=== PATIENT | female | born 1945 | race Caucasian/White ===

== ENCOUNTER 2016-10-08 14:32 | Emergency (ER) | payer SELFPAY ==
[~2016-10-08] VITALS: Ht 157.5 cm; Wt 63.5 kg
[2016-10-08 14:35] VITALS: BP 182/90; PULSE 89; RESP 16; TEMP 98.2; O2SAT 96
[2016-10-08 15:10] VITALS: BP 160/70; PULSE 80; RESP 17; O2SAT 97
[2016-10-08] MEDS ORDERED: ALEN1TAB48 PO (15:18)
[2016-10-08] MEDS ORDERED: CLON0.1T PO (15:18)
[2016-10-08] MEDS ORDERED: BENA20TA PO (15:18)
[2016-10-08] MEDS ORDERED: AMLO10TA2 PO (15:18)
[2016-10-08] MEDS ORDERED: PRED5TAB PO (15:18)
[2016-10-08] MEDS ORDERED: LANTUS2P SQ (15:18)
[2016-10-08] MEDS ORDERED: SIMV20TA PO (15:18)
[2016-10-08] MEDS ORDERED: METF1000 PO (15:18)
[2016-10-08] MEDS ORDERED: FLUT50SP EACH NARE (15:18)
[2016-10-08] MEDS ORDERED: FENO145T2 PO (15:18)
[2016-10-08 15:45] VITALS: O2SAT 100
[2016-10-08 15:59] LABS: AUTOMATED NEUTROPHIL # 8.8 TH/MM3 (1.8-7.7); BASOPHIL # 0.1 TH/MM3 (0-0.2); BASOPHIL % 0.9 % (0.0-2.0); EOSINOPHIL # 0.2 TH/MM3 (0-0.4); EOSINOPHIL % 1.8 % (0.0-4.0); HEMATOCRIT 41.8 % (35.0-46.0); HEMO FLAGS DIFF FINAL; LYMPH % 21.2 % (9.0-44.0); LYMPHOCYTE # 2.6 TH/MM3 (1.0-4.8); MEAN CELL VOLUME 84.4 FL (80.0-100.0); MEAN CORPUSCULAR HEMOGLOBIN 29.1 PG (27.0-34.0); MEAN CORPUSCULAR HGB CONC 34.5 % (32.0-36.0); MONO % 4.5 % (0.0-8.0); NEUT % 71.6 % (16.0-70.0); PLATELET COUNT 262 TH/MM3 (150-450); RED BLOOD COUNT 4.95 MIL/MM3 (4.00-5.30); RED CELL DISTRIBUTION WIDTH 13.2 % (11.6-17.2); WHITE BLOOD COUNT 12.2 TH/MM3 (4.0-11.0)
[2016-10-08 16:00] VITALS: BP 151/97; PULSE 78; RESP 19; O2SAT 97
[2016-10-08 16:14] LABS: APTT (PATIENT) 22.3 SEC (24.3-30.1); PROTHROMBIN TIME - PATIENT 10.7 SEC (9.8-11.6)
--- NOTE | 2016-10-08 16:20 | RADRPT ---
EXAM DATE/TIME: 10/08/2016 16:01 [facility] COMPARISON: Report only CT BRAIN W/O CONTRAST, November 30, 2010, 6:33. INDICATIONS : Headache and elevated blood pressure. RADIATION DOSE: 30.40 CTDIvol (mGy) MEDICAL HISTORY : Cardiovascular disease. Diabetes mellitus type 2. Hypertension. SURGICAL HISTORY : None. ENCOUNTER: Initial ACUITY: 1 day PAIN SCALE: 5/10 LOCATION: cranial TECHNIQUE: Multiple contiguous axial images were obtained of the head. Using automated exposure control and adj ustment of the mA and/or kV according to patient size, radiation dose was kept as low as reasonably a chievable to obtain optimal diagnostic quality images. FINDINGS: CEREBRUM: The ventricles are normal for age. No evidence of midline shift, mass lesion, hemorrhage or acute in farction. No extra-axial fluid collections are seen. Scattered encephalomalacia seen in the right pa rietal and occipital lobes, does not appear acute but was not described on the 2011 prior report. POSTERIOR FOSSA: The cerebellum and brainstem are intact. The 4th ventricle is midline. The cerebellopontine angle i s unremarkable. EXTRACRANIAL: The visualized portion of the orbits is intact. SKULL: The calvaria is intact. No evidence of skull fracture. CONCLUSION: 1. 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 2. No bleed, acute infarct or other acute intracranial abnormality demonstrated. Rubén Mccarty MD on October 08, 2016 at 16:16 Board Certified Radiologist. This report was verified electronically.
[2016-10-08 16:25] LABS: BICARBONATE 25.7 MEQ/L (21.0-32.0); MAGNESIUM 1.8 MG/DL (1.5-2.5); POTASSIUM 3.4 MEQ/L (3.5-5.1)
[2016-10-08 17:00] VITALS: BP 166/90; PULSE 77; RESP 18; O2SAT 97
--- NOTE | 2016-10-08 17:27 | PD ---
HPI Chief Complaint: Headache Time Seen by Provider: 15:39 Travel History International Travel<30 days: No Contact w/Intl Traveler<30days: No Traveled to known affect area: No History of Present Illness HPI 71-year-old female presents with frontal headache that is been present over the past couple of days. She went to her primary care physician who adjusted her blood pressure medications and told her to come to the emergency department if her systolic blood pressure was over 160. Given it was elevated and she was still having headache she presents today. She has been taking Tylenol for the pain. She denies thunderclap onset. She denies any recent trauma but states 2 months ago she fell and hit her head. She states she has never had any imaging for that. Quality is throbbing. Severity is moderate. She denies other concurrent complaints. PFSH Past Medical History Arthritis: No Asthma: No Autoimmune Disease: No Anxiety: No Depression: No Heart Rhythm Problems: No Cancer: No Cardiovascular Problems: Yes High Cholesterol: No Chemotherapy: No Congestive Heart Failure: No COPD: No Cerebrovascular Accident: No Diabetes: Yes Patient Takes Glucophage: Yes Diminished Hearing: No Endocrine: No Gastrointestinal Disorders: Yes GERD: No Genitourinary: No Headaches: Yes Hiatal Hernia: No Immune Disorder: No Kidney Stones: No Musculoskeletal: No Neurologic: Yes Psychiatric: No Reproductive: No Respiratory: No Migraines: Yes Radiation Therapy: No Renal Failure: No Seizures: No Sickle Cell Disease: No Sleep Apnea: No Thyroid Disease: No Ulcer: No Tetanus Vaccination: < 5 Years Influenza Vaccination: No Past Surgical History Abdominal Surgery: No (GALLBLADDER SURGERY) AICD: No Arteriovenous Shunt: No Cardiac Surgery: No Cholecystectomy: Yes Ear Surgery: No Endocrine Surgery: No Eye Surgery: No Genitourinary Surgery: No Gynecologic Surgery: No Insulin Pump: No Joint Replacement: No Oral Surgery: No Pacemaker: No Thoracic Surgery: No Other Surgery: Yes Social History Alcohol Use: No Tobacco Use: No Substance Use: No Allergies-Medications (Allergen,Severity, Reaction): Coded Allergies: Penicillin (Verified Allergy, Severe, 10/08/16) Sulfa (Verified Allergy, Severe, 10/08/16) Reported Meds & Prescriptions Reported Meds & Active Scripts Active Reported Simvastatin 20 Mg Tab 20 Mg PO HS Prednisone 5 Mg Tab 5 Mg PO DAILY Fluticasone Nasal [place] 50 Mcg/Act Naspr 50 Mcg EACH NARE BID 50 mcg/spray Benazepril (Benazepril HCl) 20 Mg Tab 20 Mg PO DAILY Alendronate (Alendronate Sodium) 70 Mg Tab 70 Mg PO Q7D Metformin (Metformin HCl) 1,000 Mg Tab 1,000 Mg PO BIDPC With meals Fenofibrate 145 Mg Tab 145 Mg PO DAILY Lantus Inj (Insulin Glargine) 1,000 Unit/10 Ml Vial 25 Units SQ HS Clonidine (Clonidine HCl) 0.1 Mg Tab 0.1 Mg PO Q8HR PRN Amlodipine (Amlodipine Besylate) 10 Mg Tab 10 Mg PO DAILY Review of Systems Except as stated in HPI: all other systems reviewed are Neg Physical Exam Narrative GENERAL: Well-nourished, well-developed patient. SKIN: Warm and dry. HEAD: Normocephalic and atraumatic. EYES: No injection or drainage. ENT: No nasal drainage noted. NECK: Supple, trachea midline. No meningeal signs, tender to bilateral trapezius CARDIOVASCULAR: Regular rate and rhythm RESPIRATORY: No increased effort. No accessory muscle use. EXTREMITIES: No edema. NEUROLOGICAL: Awake and alert. Motor and sensory grossly within normal limits. Normal speech. Data Data Last Documented VS Vital Signs Date Time Temp Pulse Resp B/P Pulse Ox O2 Delivery O2 Flow Rate FiO2 10/08/16 17:00 77 18 166/90 97 Room Air 10/08/16 14:35 98.2 Orders Magnesium (Mg) (10/08/16 15:21) Phosphorus (Po4) (10/08/16 15:21) Complete Blood Count With Diff (10/08/16 15:21) Basic Metabolic Panel (Bmp) (10/08/16 15:21) Act Partial Throm Time (Ptt) (10/08/16 15:21) Prothrombin Time / Inr (Pt) (10/08/16 15:21) Ct Brain W/O Iv Contrast(Rout) (10/08/16 ) Iv Access Insert/Monitor (10/08/16 15:21) Ecg Monitoring (10/08/16 15:21) Oximetry (10/08/16 15:21) Ketorolac Inj (Toradol Inj) (10/08/16 17:30) Oxycodone-Acetamin 5-325 Mg (Percocet (10/08/16 17:45) Ondansetron Odt (Zofran Odt) (10/08/16 18:30) Labs Laboratory Tests Test 10/08/16 15:50 White Blood Count 12.2 TH/MM3 Red Blood Count 4.95 MIL/MM3 Hemoglobin 14.4 GM/DL Hematocrit 41.8 % Mean Corpuscular Volume 84.4 FL Mean Corpuscular Hemoglobin 29.1 PG Mean Corpuscular Hemoglobin 34.5 % Concent Red Cell Distribution Width 13.2 % Platelet Count 262 TH/MM3 Mean Platelet Volume 10.5 FL Neutrophils (%) (Auto) 71.6 % Lymphocytes (%) (Auto) 21.2 % Monocytes (%) (Auto) 4.5 % Eosinophils (%) (Auto) 1.8 % Basophils (%) (Auto) 0.9 % Neutrophils # (Auto) 8.8 TH/MM3 Lymphocytes # (Auto) 2.6 TH/MM3 Monocytes # (Auto) 0.6 TH/MM3 Eosinophils # (Auto) 0.2 TH/MM3 Basophils # (Auto) 0.1 TH/MM3 CBC Comment DIFF FINAL Differential Comment Prothrombin Time 10.7 SEC Prothromb Time International 1.0 RATIO Ratio Activated Partial 22.3 SEC Thromboplast Time Sodium Level 144 MEQ/L Potassium Level 3.4 MEQ/L Chloride Level 109 MEQ/L Carbon Dioxide Level 25.7 MEQ/L Anion Gap 9 MEQ/L Blood Urea Nitrogen 14 MG/DL Creatinine 0.87 MG/DL Estimat Glomerular Filtration 65 ML/MIN Rate Random Glucose 140 MG/DL Calcium Level 9.3 MG/DL Phosphorus Level 3.5 MG/DL Magnesium Level 1.8 MG/DL MDM Medical Decision Making Medical Screen Exam Complete: Yes Emergency Medical Condition: Yes Medical Record Reviewed: Yes (past history confirmed) Interpretation(s) CBC & BMP Diagram 10/08/16 15:50 Last [address] 10/08/16 0000 Signed Impressions: Service Date/Time: Saturday, October 08, 2016 16:01 - CONCLUSION: 1. 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 2. No bleed, acute infarct or other acute intracranial abnormality demonstrated. Rubén Mccarty MD Differential Diagnosis Tension, migraine, hypertensive urgency Narrative Course Will check blood work, CT brain and reevaluate. Blood pressure can be adjusted further as an outpatient given percocet and zofran for symptoms ED workup no emergent, Patient denies any new complaints and states that they are feeling better. Patient happy with care, all questions answered. Patient knows that follow up is incumbent on them and to return to the emergency room immediately if new or worsening symptoms develop. Patient given strict return precautions, vitals reviewed and are normal, agrees to further workup as an outpatient. Diagnosis Primary Impression: Cephalgia Qualified Code: R51 - Acute nonintractable headache, unspecified headache type Additional Impression: Hypertension Qualified Code: I10 - Essential hypertension Patient Instructions: General Instructions Additional Instructions: Return as needed, Tylenol as needed, keep blood pressure log, follow with primary on Tuesday Med/Other Pt SpecificInfo: No Change to Meds Disposition: DISCHARGE HOME Condition: Stable Anna Hassan MD Oct 08, 2016 17:27
[2016-10-08] MEDS ORDERED: KETOROLAC TROMETHAMINE 30 MG/ML (IVP) VIAL IV PUSH ONE (17:30)
[2016-10-08] MEDS ORDERED: oxyCODONE/ACETAMINOPHEN 5 MG/325 MG TAB PO ONE (17:45)
[2016-10-08] MEDS ORDERED: ONDANSETRON ODT 4 MG TAB PO ONE (18:30)
== END 2016-10-08 19:00 | disposition home or self-care (01) ==
LOC: NEPC 14:32
DX: R51 Headache (principal); I10 Essential (primary) hypertension; E11.9 Type 2 diabetes mellitus without complications; Z87.442 Personal history of urinary calculi
CPT/HCPCS: 70450; 80048; 83735; 84100; 85025; 85610; 85730